=== PATIENT | male | born 1980 | race Caucasian/White ===

== ENCOUNTER 2020-06-30 20:07 | Emergency (ER) | payer BC, OTHER ==
[~2020-06-30] VITALS: Ht 147.3 cm; Wt 43.1 kg
[~2020-06-30 20:07] MED LIST: Z.0.CIPRO500 MG; Z.0.FLAGYL500 MG
[2020-06-30 20:54] LABS: BILIRUBIN,URINE SMALL (NEGATIVE); CLARITY,URINE HAZY (CLEAR); COLOR,URINE YELLOW (YELLOW); KETONES,URINE NEGATIVE (NEGATIVE); LEUKOCYTE ESTERASE ,URINE NEGATIVE (NEGATIVE); NITRITE,URINE NEGATIVE (NEGATIVE); PROTEIN,URINE DIPSTICK 1+ (NEGATIVE); URINE UROBILINOGEN 2 mg/dL (0.2 - 1)
[2020-06-30 21:09] LABS: BACTERIA,URINE FEW /HPF; EPITHELIAL CELLS,URINE FEW /LPF; WBC,URINE (MAN) 0-5 /HPF (0-5)
[2020-06-30 22:05] LABS: BASOPHILS % 0.3 % (0.0-1.0); EOSINOPHILS # (AUTO) 0.1 (0.0-0.4); EOSINOPHILS % 0.4 % (0.0-6.0); HEMATOCRIT 45.7 % (38.2-49.6); LYMPHOCYTES % 8.3 % (18.0-39.1); MEAN CORPUSCULAR HGB CONC 32.8 g/dL (31-35); MEAN CORPUSCULAR VOLUME 82.3 fL (81-99); MONOCYTES # (AUTO) 1.1 (0.2-0.8); MONOCYTES % 9.1 % (4.4-11.3); NEUTROPHILS # (AUTO) 9.4 (2.1-6.9); NEUTROPHILS % 81.3 % (38.7-80.0); PLATELET COUNT 233 x10e3/uL (140-360); RED BLOOD COUNT 5.55 x10e6/uL (4.3-5.7); RED CELL DISTRIBUTION WIDTH 14.8 % (11.7-14.4)
--- NOTE | 2020-06-30 22:13 | Emergency Department Note ---
History of Present Illnes History of Present Illness Chief Complaint: Abdominal Complaints History of Present Illness This is a 39 year old male WITH LLQ PAIN, NAUSEA AND DIARRHEA, STATES HAS H/O DIVERTICULITIS, SYMPTOMS STARTED THIS MORNING . Historian: Patient Arrival Mode: Car Onset (how long ago): hour(s) (12) Location: LLQ ABD Quality: PAIN, NAUSEA AND DIARRHEA Severity: moderate Onset quality: gradual Duration (how long): hour(s) (12) Timing of current episode: constant Progression: waxing and waning Chronicity: recurrent Context: Denies recent illness, Denies recent surgery Relieving factors: none Exacerbating factors: none Associated symptoms: Reports denies other symptoms Treatments prior to arrival: none Past Medical/Family History Physician Review I have reviewed the patient's past medical and family history. Any updates have been documented here. Past Medical History Recent Fever: No Clinical Suspicion of Infectio: No New/Unexplained Change in Ment: No Past Medical History: Anxiety, Depression, GERD Other Medical History: colitis, ptsd Past Surgical History: None Other Surgery: HEART SURGERY CHILD TESTICAL SX BACK-SCOLIOSIS SURGERY T&A EAR R LEG L KNEE Social History Smoking Cessation: Never Smoker Alcohol Use: Occasional Any Illegal Drug Use: No Family History Family history of heart diseas: No Review of Systems Review of Systems Constitutional: Reports no symptoms EENTM: Reports no symptoms Cardiovascular: Reports no symptoms Respiratory: Reports no symptoms Gastrointestinal: Reports as per HPI Genitourinary: Reports no symptoms Musculoskeletal: Reports no symptoms Integumentary: Reports no symptoms Neurological: Reports no symptoms Psychological: Reports no symptoms Endocrine: Reports no symptoms Hematological/Lymphatic: Reports no symptoms Physical Exam Related Data Allergies: Coded Allergies: Penicillins (Verified Allergy, Mild, 04/10/11) Ciprofloxacin (Verified Adverse Reaction, Severe, RASH, 04/24/11) Metronidazole (Verified Adverse Reaction, Severe, RASH, 04/24/11) Triage Vital Signs Vital Signs Date Time Temp Pulse Resp B/P (MAP) Pulse Ox O2 Delivery O2 Flow Rate FiO2 06/30/20 20:21 98.2 85 20 122/70 99 Room Air Physical Exam CONSTITUTIONAL Constitutional: Present well-developed, Present well-nourished; Absent distressed HENT HENT: Present normocephalic, Present atraumatic, Present oropharynx clear/moist, Present nose normal HENT L/R: Present left ext ear normal, Present right ext ear normal EYES Eyes: Reports PERRL, Reports conjunctivae normal NECK Neck: Present ROM normal PULMONARY Pulmonary: Present effort normal, Present breath sounds normal CARDIOVASCULAR Cardiovascular: Present regular rhythm, Present heart sounds normal, Present capillary refill normal, Present normal rate GASTROINTESTINAL Abdominal: Present soft, Present bowel sounds normal, Present tender (MILD LLQ) GENITOURINARY Genitourinary: Present exam deferred SKIN Skin: Present warm, Present dry MUSCULOSKELETAL Musculoskeletal: Present ROM normal NEUROLOGICAL Neurological: Present alert, Present oriented x 3, Present no gross motor or sensory deficits PSYCHOLOGICAL Psychological: Present mood/affect normal, Present judgement normal Results Laboratory Laboratory Laboratory Tests Test 06/30/20 21:57 06/30/20 20:40 White Blood Count 11.54 x10e3/uL (4.8-10.8) Red Blood Count 5.55 x10e6/uL (4.3-5.7) Hemoglobin 15.0 g/dL (14.0-18.0) Hematocrit 45.7 % (38.2-49.6) Mean Corpuscular Volume 82.3 fL (81-99) Mean Corpuscular Hemoglobin 27.0 pg (28-32) Mean Corpuscular Hemoglobin Concent 32.8 g/dL (31-35) Red Cell Distribution Width 14.8 % (11.7-14.4) Platelet Count 233 x10e3/uL (140-360) Neutrophils (%) (Auto) 81.3 % (38.7-80.0) Lymphocytes (%) (Auto) 8.3 % (18.0-39.1) Monocytes (%) (Auto) 9.1 % (4.4-11.3) Eosinophils (%) (Auto) 0.4 % (0.0-6.0) Basophils (%) (Auto) 0.3 % (0.0-1.0) Neutrophils # (Auto) 9.4 (2.1-6.9) Lymphocytes # (Auto) 1.0 (1.0-3.2) Monocytes # (Auto) 1.1 (0.2-0.8) Eosinophils # (Auto) 0.1 (0.0-0.4) Basophils # (Auto) 0.0 (0.0-0.1) Absolute Immature Granulocyte (auto 0.07 x10e3/uL (0-0.1) Sodium Level 139 mmol/L (136-145) Potassium Level 3.6 mmol/L (3.5-5.1) Chloride Level 103 mmol/L (98-107) Carbon Dioxide Level 24 mmol/L (22-29) Anion Gap 15.6 mmol/L (8-16) Blood Urea Nitrogen 15 mg/dL (7-26) Creatinine 0.75 mg/dL (0.72-1.25) Estimat Glomerular Filtration Rate > 60 ML/MIN (60-) BUN/Creatinine Ratio 20 (6-25) Glucose Level 116 mg/dL (74-118) Calcium Level 9.2 mg/dL (8.4-10.2) Total Bilirubin 2.0 mg/dL (0.2-1.2) Aspartate Amino Transf (AST/SGOT) 13 IU/L (5-34) Alanine Aminotransferase (ALT/SGPT) 12 IU/L (0-55) Alkaline Phosphatase 86 IU/L (40-150) Total Protein 6.8 g/dL (6.5-8.1) Albumin 4.0 g/dL (3.5-5.0) Globulin 2.8 g/dL (2.3-3.5) Albumin/Globulin Ratio 1.4 (0.8-2.0) Amylase Level 35 U/L (25-125) Lipase 10 U/L (8-78) Urine Color Yellow (YELLOW) Urine Clarity Hazy (CLEAR) Urine pH 5.5 (5 - 7) Urine Specific [place] >=1.030 (1.010-1.025) Urine Protein 1+ (NEGATIVE) Urine Glucose (UA) 1+ (NEGATIVE) Urine Ketones Negative (NEGATIVE) Urine Blood Negative (NEGATIVE) Urine Nitrite Negative (NEGATIVE) Urine Bilirubin Small (NEGATIVE) Urine Urobilinogen 2 mg/dL (0.2 - 1) Urine Leukocyte Esterase Negative (NEGATIVE) Urine RBC None /HPF (0-5) Urine WBC 0-5 /HPF (0-5) Urine Epithelial Cells Few /LPF (NONE) Urine Bacteria Few /HPF (NONE) Laboratory Tests Test 06/30/20 21:57 06/30/20 20:40 Urine Color Yellow (YELLOW) Urine Clarity Hazy (CLEAR) Urine pH 5.5 (5 - 7) Urine Specific [place] >=1.030 (1.010-1.025) Urine Protein 1+ (NEGATIVE) Urine Glucose (UA) 1+ (NEGATIVE) Urine Ketones Negative (NEGATIVE) Urine Blood Negative (NEGATIVE) Urine Nitrite Negative (NEGATIVE) Urine Bilirubin Small (NEGATIVE) Urine Urobilinogen 2 mg/dL (0.2 - 1) Urine Leukocyte Esterase Negative (NEGATIVE) Urine RBC None /HPF (0-5) Urine WBC 0-5 /HPF (0-5) Urine Epithelial Cells Few /LPF (NONE) Urine Bacteria Few /HPF (NONE) Lab results reviewed: Yes Imaging Imaging results reviewed: Yes Impressions EXAM: CT Abdomen and Pelvis WITH contrast INDICATION: ^ABD PAIN ^[id number] ^[id number] ^Y COMPARISON: CT dated 04/02/2011 TECHNIQUE: Abdomen and pelvis were scanned utilizing a multidetector helical scanner from the lung base to the pubic symphysis after administration of IV contrast. Coronal and sagittal reformations were obtained. Dose modulation, iterative reconstruction, and/or weight based adjustment of the mA/kV was utilized to reduce the radiation dose to as low as reasonably achievable. Routine protocol was performed. Scan was performed when during portal venous phase. IV CONTRAST: 100 mL of Isovue-370 ORAL CONTRAST: Water COMPLICATIONS: None RADIATION DOSE: Total DLP: 139.72 mGy*cm Estimated effective dose: (DLP x 0.015 x size factor) mSv CTDIvol has been reviewed. It is below the limits set by the Radiation Protocol Committee (RPC). FINDINGS: LINES and TUBES: None. LOWER THORAX: Unremarkable HEPATOBILIARY: No focal hepatic lesions. Unchanged mild biliary dilatation. GALLBLADDER: No radio-opaque stones or sludge. No wall thickening. SPLEEN: Splenomegaly, measuring 19.3 cm. Tiny nonspecific hypodensity. PANCREAS: No focal masses or ductal dilatation. ADRENALS: No adrenal nodules KIDNEYS/URETERS: Kidneys enhance symmetrically. No hydronephrosis. No cystic or solid mass lesions. No stones. Mass effect on both kidneys, left greater than right. Duplicated left renal collecting system. GI TRACT: Markedly distended stomach with air, water, and ingested material. Some bowel loops are distended, demonstrating wall thickening and mucosal hyperenhancement. Appendix is not visualized. PELVIC ORGANS/BLADDER: Bladder is not distended, demonstrating wall thickening and mild perivesical fat stranding. Prostate is prominent. LYMPH NODES: No lymphadenopathy. VESSELS: Unremarkable. PERITONEUM / RETROPERITONEUM: No free air or fluid. BONES: Scoliosis of the spine with bilateral Garrett tobi fixating devices in place. Skeletal changes including left iliac lucency and thinning adjacent to the sacroiliac joint, are unchanged. SOFT TISSUES: Unremarkable. IMPRESSION: 1. Markedly distended stomach, concerning for gastric outlet obstruction. 2. Small and large bowel areas of wall thickening and mucosal hyperenhancement, representing enterocolitis. 3. Again seen significant splenomegaly and mild biliary dilatation. 4. Bladder wall thickening and mild perivesical fat stranding. Recommend correlation with urinalysis for cystitis. Signed by: Dr. Dayron Davis MD on 06/30/2020 11:57 PM Dictated By: DAYRON DAVIS MD 56 Transcribed By: ÁNGEL on 06/30/202356 COPY TO: HUANG GARRETT MD~ Assessment & Plan Medical Decision Making MDM PT WITH LLQ PAIN NAUSEA AND DIARRHEA CBC, CMP, AMYLASE, LIPASE, UA, CT ABD/PELVIS ORDERED TO EVAL FOR LEUKOCYTOSIS, ELECTROLYTE ABNORMALITY, UTI, PANCREATITIS, COLITIS, DIVERTICULITIS, BOWEL PERFORATION omnicef due to allergies to pcn, cipro and flagyl Assessment & Plan Final Impression: (1) Enterocolitis Depart Disposition: HOME, SELF-CARE Last Vital Signs Date Time Temp Pulse Resp B/P (MAP) Pulse Ox O2 Delivery O2 Flow Rate FiO2 06/30/20 21:45 73 18 129/70 99 Room Air 06/30/20 20:21 98.2 HUANG GARRETT MD Jun 30, 2020 22:13
[2020-06-30 22:17] LABS: ALANINE AMINOTRANSFERASE 12 IU/L (0-55); ALBUMIN/GLOBULIN RATIO 1.4 (0.8-2.0); ALKALINE PHOSPHATASE 86 IU/L (40-150); ANION GAP 15.6 mmol/L (8-16); BLOOD UREA NITROGEN 15 mg/dL (7-26); BUN/CREATININE RATIO 20 (6-25); CALCIUM 9.2 mg/dL (8.4-10.2); CARBON DIOXIDE 24 mmol/L (22-29); CHLORIDE 103 mmol/L (98-107); CREATININE, SERUM 0.75 mg/dL (0.72-1.25); EST GLOMERULAR FILTRATION RATE > 60 ML/MIN (60-); GLUCOSE 116 mg/dL (74-118); POTASSIUM 3.6 mmol/L (3.5-5.1); SODIUM 139 mmol/L (136-145)
[2020-06-30 22:18] LABS: AMYLASE 35 U/L (25-125); LIPASE 10 U/L (8-78)
[2020-06-30] MEDS ORDERED: IOPAMIDOL 370 MG/ML 200 ML INFUS..BTL INJ ONE (22:34)
[2020-06-30] MEDS ORDERED: SODIUM CHLORIDE 0.9% 50ML 50 ML ONE (22:34)
--- NOTE | 2020-07-01 00:01 | Diagnostic Imaging Report ---
EXAM: CT Abdomen and Pelvis WITH contrast INDICATION: ^ABD PAIN ^[id number] ^[id number] ^Y COMPARISON: CT dated 04/02/2011 TECHNIQUE: Abdomen and pelvis were scanned utilizing a multidetector helical scanner from the lung base to the pubic symphysis after administration of IV contrast. Coronal and sagittal reformations were obtained. Dose modulation, iterative reconstruction, and/or weight based adjustment of the mA/kV was utilized to reduce the radiation dose to as low as reasonably achievable. Routine protocol was performed. Scan was performed when during portal venous phase. IV CONTRAST: 100 mL of Isovue-370 ORAL CONTRAST: Water COMPLICATIONS: None RADIATION DOSE: Total DLP: 139.72 mGy*cm Estimated effective dose: (DLP x 0.015 x size factor) mSv CTDIvol has been reviewed. It is below the limits set by the Radiation Protocol Committee (RPC). FINDINGS: LINES and TUBES: None. LOWER THORAX: Unremarkable HEPATOBILIARY: No focal hepatic lesions. Unchanged mild biliary dilatation. GALLBLADDER: No radio-opaque stones or sludge. No wall thickening. SPLEEN: Splenomegaly, measuring 19.3 cm. Tiny nonspecific hypodensity. PANCREAS: No focal masses or ductal dilatation. ADRENALS: No adrenal nodules KIDNEYS/URETERS: Kidneys enhance symmetrically. No hydronephrosis. No cystic or solid mass lesions. No stones. Mass effect on both kidneys, left greater than right. Duplicated left renal collecting system. GI TRACT: Markedly distended stomach with air, water, and ingested material. Some bowel loops are distended, demonstrating wall thickening and mucosal hyperenhancement. Appendix is not visualized. PELVIC ORGANS/BLADDER: Bladder is not distended, demonstrating wall thickening and mild perivesical fat stranding. Prostate is prominent. LYMPH NODES: No lymphadenopathy. VESSELS: Unremarkable. PERITONEUM / RETROPERITONEUM: No free air or fluid. BONES: Scoliosis of the spine with bilateral Bledsoe tobi fixating devices in place. Skeletal changes including left iliac lucency and thinning adjacent to the sacroiliac joint, are unchanged. SOFT TISSUES: Unremarkable. IMPRESSION: 1. Markedly distended stomach, concerning for gastric outlet obstruction. 2. Small and large bowel areas of wall thickening and mucosal hyperenhancement, representing enterocolitis. 3. Again seen significant splenomegaly and mild biliary dilatation. 4. Bladder wall thickening and mild perivesical fat stranding. Recommend correlation with urinalysis for cystitis. Signed by: Dr. Dayron Davis MD on 06/30/2020 11:57 PM
[2020-07-01 00:16] VITALS: BP 126/70
== END 2020-07-01 00:28 | disposition home or self-care (01) ==
LOC: ER 20:51
DX: K52.9 Noninfective gastroenteritis and colitis, unspecified (principal); R10.32 Left lower quadrant pain; R11.0 Nausea; K21.9 Gastro-esophageal reflux disease without esophagitis; F41.9 Anxiety disorder, unspecified
CPT/HCPCS: 36415; 74177; 80053; 81001; 82150; 83690; 85025; 99284; Q9967

== ENCOUNTER 2020-07-01 09:38 | Emergency (ER) | payer BC ==
[~2020-07-01] VITALS: Ht 147.3 cm; Wt 43.1 kg
[2020-07-01] MEDS ORDERED: METHYLPREDNISOLONE SOD SUCC 125 MG/2ML VIAL IV STA (09:42)
[2020-07-01] MEDS ORDERED: FAMOTIDINE 20 MG/2 ML VIAL IV STA (09:42)
[2020-07-01] MEDS ORDERED: DIPHENHYDRAMINE HCL INJ 50 MG/ML VIAL IV ONE ×2 (09:45→11:00)
[2020-07-01] MEDS ORDERED: SODIUM CHLORIDE 0.9% 500ML 500 ML IV ONE (09:45)
--- OUTSIDE RECORDS SUMMARY | 2020-07-01 09:50 | XMS REPORT | Continuity of Care Document ---
Author Author [facility] Organization [facility] Address [address] [place] [address] Phone Unavailable Care Team Providers Care Quantitative Software Engineer Name Role Phone Rosy GARRETT Unavailable Payers Payer Name Policy Type Policy Number Effective Date Expiration Date S ource Problems This patient has no known problems. Allergies, Adverse Reactions, Alerts Allergy Name Allergy Type Status Severity Reaction(s) Onset Date Inacti ve Date Treating Clinician Comments Source aztreonam DA Active 2018-04-03 00:00:00 [facility] sulfamethoxazole DA Active 2018-04-03 00:00:00 [facility] metronidazole DA Active 2018-04-03 00:00:00 [facility] vancomycin HCl DA Active OR 2017-03-28 00:00:00 [facility] Penicillins DA Active U 2017-03-28 00:00:00 [facility] levofloxacin DA Active OR 2017-03-28 00:00:00 [facility] Medications This patient has no known medications. Procedures This patient has no known procedures. Results Test Description Test Time Test Comments Results Result Comments Source CT ABDOMEN/PELVIS W 2020-06-30 23:45:00 [facility] [address] [place], [place] [address] Patient Name: ALFIE ARMENTA MR #: [id number] : 1980 Age/Sex: 39/M Req #: [id number] Adm Physician: Ordered by: HUANG GARRETT MD Report #: [id number] Location: ER Room/Bed: Procedure: [id number] CT/CT ABDOMEN/PELVIS W Exam Date: 06/30/20 Exam Time: 2254 REPORT STATUS: Signed EXAM: CT Abdomen and Pelvis WITH contrast INDICATION: ABD PAIN [id number] Y COMPARISON: CT dated 04/02/2011 TECHNIQUE: Abdomen and pelvis were scanned utilizing a multidetector helical scanner from the lung base to the pubic symp hysis after administration of IV contrast. Coronal and sagittal reformations were obtained. Dose modulation, iterative reconstruction, and/or weight based adjustment of the mA/kV was utilized to reduce the radiation dose to as low as reasonably achievable. Routine protocol was performed. Scan was performed when during portal venous phase. IV CONTRAST: 100 mL of Isovue-370 ORAL CONTRAST: Water COMPLICATIONS: None RADIATION DOSE: Total DLP: 139.72 mGy*cm Estimated effective dose: (DLP x 0.015 x size factor) mSv CTDIvol has been reviewed. It is below the limits set by the Radiation Protocol Committee (RPC). FINDINGS: LINES and TUBES: None. LOWER THORAX: Unremarkable HEPATOBILIARY: No focal hepatic lesions. Unchanged mild biliary dilatation. GALLBLADDER: No radio-opaque stones or sludge. No wall thickening. SPLEEN: Splenomegaly, measuring 19.3 cm. Tiny nonspecific hypodensity. PANCREAS: No focal masses or ductal dilatation. ADRENALS: No adrenal nodules KIDNEYS/URETERS: Kidneys enhance symmetrically. No hydronephrosis. No cystic or solid mass lesions. No stones. Mass effect on both kidneys, left greater than right. Duplicated left renal collecting system. GI TRACT: Markedly distended stomach with air, water, and ingested material. Some bowel loops are di stended, demonstrating wall thickening and mucosal hyperenhancement. Appendix is not visualized. PELVIC ORGANS/BLADDER: Bladder is not distended, demonstrating wall thickening and mild perivesical fat stranding. Prostate is prominent. LYMPH NODES: No lymphadenopathy. VESSELS: Unremarkable. PERITONEUM / RETROPERITONEUM: No free air or fluid. BONES: Scoliosis of the spine with bilateral Garrett tobi fixating devices in place. Skeletal changes including left iliac lucency and thinning adjacent to the sacroiliac joint, are unchanged. SOFT TISSUES: Unremarkable. IMPRESSION: 1. Markedly distended stomach, concerning for gastric outlet obstruction. 2. Small and large bowel areas of wall thickening and mucosal hyperenhancement, representing enterocolitis. 3. Again seen significant splenomegaly and mild biliary dilatation. 4. Bladder wall thickening and mild perivesical fat stranding. Recommend correlation with urinalysis for cystitis. Signed by: Dr. Dayron Marquez MD on 06/30/2020 11:57 PM Dictated By: DAYRON MARQUEZ MD 56 Transcribed By: ÁNGEL on 06/30/202356 COPY TO: HUANG GARRETT MD URINALYSIS COMPLETE 2019-01-21 16:26:00 Test Item UA COLOR (test code = COLU) DARK YELLOW YELLOW A UA APPEARANCE (test code = APPU) CLEAR CLEAR UA GLUCOSE DIPSTICK (test code = DGLUU) NEGATIVE mg/dL NEGATIVE UA BILIRUBIN DIPSTICK (test code = BILU) NEGATIVE mg/dL NEGATIVE UA KETONE DIPSTICK (test code = KETU) Negative mg/dL NEGATIVE UA SPECIFIC GRAVITY (test code = SGU) 1.026 1.001-1.035 UA BLOOD DIPSTICK (test code = LEEANNE) Negative NEGATIVE UA PH DIPSTICK (test code = NKIOLAS) 5.0 5.0-8.0 UA PROTEIN DIPSTICK (test code = PROU) Negative mg/dL NEGATIVE UA UROBILINIOGEN DIPSTICK (test code = URO) 1.0-2.0 (1+) mg/dL NEG ATIVE UA NITRITE DIPSTICK (test code = SARA) NEGATIVE NEGATIVE UA LEUKOCYTE ESTERASE W REFLEX (test code = LEUUR) NEGATIVE NEG ATIVE UA WBC (test code = WBCU) 0-5 #/HPF 0-5 UA RBC (test code = RBCU) 0-2 #/HPF 0-5 UA EPITHELIAL CELLS (test code = EPIU) FEW per HPF FEW UA MUCUS (test code = MUCU) FEW #/LPF FEW Urine Source? Clean CatchDRUGS OF ABUSE SCREEN [id number] 16:26:00* Test Item Value Reference Range Interpretation Comments URN COCAINE (test code = COCAURN) NEGATIVE <300 ng/mL URN CANNABINOIDS (test code = CANNABURN) NEGATIVE <50 ng/mL URN AMPHETAMINE (test code = AMPHETURN) NEGATIVE <1000 ng/mL URN BARBITURATE (test code = BARBITURN) NEGATIVE <200 ng/mL URN BENZODIAZEPINE (test code = BENZOURN) NEGATIVE <200 ng/mL URN OPIATES (test code = OPIATURN) NEGATIVE <300 ng/mL URN PHENCYCLIDINE (PCP) (test code = PHENCURN) NEGATIVE <25 ng/ mL URN METHADONE (test code = METHAURN) NEGATIVE <300 ng/mL Urine Source? Clean CatchBASIC METABOLIC [id number] 16:20:00* Test Item Value Reference Range Interpretation Comments SODIUM (test code = NA) 141 mmol/L 136-145 N POTASSIUM (test code = K) 3.8 mmol/L 3.5-5.1 N CHLORIDE (test code = CL) 108.0 mmol/L 98-107 H CARBON DIOXIDE (test code = CO2) 24.0 mmol/L 21-32 N ANION GAP (test code = GAP) 12.8 10-20 N GLUCOSE (test code = GLU) 86 mg/dL 74-106 N BLOOD UREA NITROGEN (test code = BUN) 22 mg/dL 7-18 H GLOMERULAR FILTRATION RATE (test code = GFR) > 60 mL/min >=60 Estimated GFR by using Modified MDRD formula.Chronic kidney disease is defined as either kidney damageor GFR <60 mL/min/1.73 m2 for >3 months. CREATININE (test code = CREAT) 0.40 mg/dL 0.7-1.3 L BUN/CREATININE RATIO (test code = BUN/CREA) 55.0 10-20 H CALCIUM (test code = CA) 8.7 mg/dL 8.5-10.1 N HEPATIC FUNCTION [id number] 16:20:00* Test Item Value Reference Range Interpretation Comments TOTAL PROTEIN (test code = PROT) 6.8 gram/dL 6.4-8.2 N ALBUMIN (test code = ALB) 3.8 g/dL 3.4-5.0 N GLOBULIN (test code = GLOB) 3.0 gram/dL 2.7-4.2 N ALBUMIN/GLOBULIN RATIO (test code = A/G) 1.3 0.75-1.50 N BILIRUBIN TOTAL (test code = BILT) 0.80 mg/dL 0.0-1.0 N BILIRUBIN DIRECT (test code = BILD) 0.24 mg/dL 0.0-0.20 H SGOT/AST (test code = AST) 20 IUnit/L 15-37 N SGPT/ALT (test code = ALT) 24 IUnit/L 12-78 N ALKALINE PHOSPHATASE TOTAL (test code = ALKP) 75 IUnit/L 45-117 N Note change in reference range due to change in reagent. [id number] 16:20:00* Test Item Value Reference Range Interpretation Comments LIPASE (test code = LIP) 102 U/L 73.0-393.0 N [id number] 16:20:00* Test Item Value Reference Range Interpretation Comments ACETAMINOPHEN (test code = ACET) < 10 mcg/mL 10-30 L A RANGE OF 10-30 mcg/mL IS A THERAPEUTIC RANGE. TOXIC CONCENTRATIONS: >150 mcg/mL AT 4 HOURS AFTER INGESTION >= 50 mcg/mL AT 12 HOURS AFTER INGESTION [id number] 16:20:00* Test Item Value Reference Range Interpretation Comments SALICYLATE (test code = KIKO) < 1.7 mg/dL 2.8-20.0 L [id number] 16:20:00* Test Item Value Reference Range Interpretation Comments ALCOHOL (test code = ALC) < 3 mg/dL 0.0-3.0 N -- INTERPRETIVE DATA NOTE: POSITIVE SCREENING RESULTS SHOULD BE CONSIDERED PRESUMPTIVE.WHEN COLLECTED FOR MEDICAL PURPOSES ONLY. SPECIMEN WILL NOTBE COLLECTED BY CHAIN OF CUSTODY.IF A CONFIRMATION OF POSITIVE RESULTS IS DESIRED, ACONFIRMATION TEST MUST BE REQUESTED BY THE PHYSICIAN AT ANADDITIONAL CHARGE TO THE PATIENT. BASIC METABOLIC [id number] 16:12:00* Test Item Value Reference Range Interpretation Comments SODIUM (test code = NA) 141 mmol/L 136-145 N POTASSIUM (test code = K) 3.8 mmol/L 3.5-5.1 N CHLORIDE (test code = CL) 108.0 mmol/L 98-107 H CARBON DIOXIDE (test code = CO2) mmol/L 21-32 ANION GAP (test code = GAP) 10-20 GLUCOSE (test code = GLU) mg/dL 74-106 BLOOD UREA NITROGEN (test code = BUN) mg/dL 7-18 GLOMERULAR FILTRATION RATE (test code = GFR) mL/min >=60 CREATININE (test code = CREAT) mg/dL 0.7-1.3 BUN/CREATININE RATIO (test code = BUN/CREA) 10-20 CALCIUM (test code = CA) mg/dL 8.5-10.1 HEPATIC FUNCTION [id number] 16:12:00* Test Item Value Reference Range Interpretation Comments TOTAL PROTEIN (test code = PROT) gram/dL 6.4-8.2 ALBUMIN (test code = ALB) g/dL 3.4-5.0 GLOBULIN (test code = GLOB) gram/dL 2.7-4.2 ALBUMIN/GLOBULIN RATIO (test code = A/G) 0.75-1.50 BILIRUBIN TOTAL (test code = BILT) mg/dL 0.0-1.0 BILIRUBIN DIRECT (test code = BILD) mg/dL 0.0-0.20 SGOT/AST (test code = AST) IUnit/L 15-37 SGPT/ALT (test code = ALT) IUnit/L 12-78 ALKALINE PHOSPHATASE TOTAL (test code = ALKP) IUnit/L 45-117 [id number] 16:12:00* Test Item Value Reference Range Interpretation Comments LIPASE (test code = LIP) U/L 73.0-393.0 [id number] 16:12:00* Test Item Value Reference Range Interpretation Comments ACETAMINOPHEN (test code = ACET) mcg/mL 10-30 [id number] 16:12:00* Test Item Value Reference Range Interpretation Comments SALICYLATE (test code = KIKO) mg/dL 2.8-20.0 [id number] 16:12:00* Test Item Value Reference Range Interpretation Comments ALCOHOL (test code = ALC) mg/dL 0-3 CBC W/O [id number] 16:09:00* Test Item Value Reference Range Interpretation Comments WHITE BLOOD CELL (test code = WBC) 9.0 K/mm3 4.5-12.5 N RED BLOOD CELL (test code = RBC) 4.70 mill/mm3 4.0-5.8 N HEMOGLOBIN (test code = HGB) 13.1 gram/dL 13.0-17.5 N HEMATOCRIT (test code = HCT) 39.1 % 42.0-52.0 L MEAN CELL VOLUME (test code = MCV) 83.2 fL 80-98 N MEAN CELL HGB (test code = MCH) 27.9 picogram 27.0-33.0 N MEAN CELL HGB CONCETRATION (test code = MCHC) 33.5 gram/dL 33.0-36. 0 N RED CELL DISTRIBUTION WIDTH (test code = RDW) 15.1 % 11.6-16. 2 N PLATELET COUNT (test code = PLT) 187 K/mm3 150-450 N MEAN PLATELET VOLUME (test code = MPV) 10.4 fL 6.7-11.0 N URINALYSIS [id number] 16:09:00* Test Item Value Reference Range Interpretation Comments UA COLOR (test code = COLU) DARK YELLOW YELLOW A UA APPEARANCE (test code = APPU) CLEAR CLEAR UA GLUCOSE DIPSTICK (test code = DGLUU) NEGATIVE mg/dL NEGATIVE UA BILIRUBIN DIPSTICK (test code = BILU) NEGATIVE mg/dL NEGATIVE UA KETONE DIPSTICK (test code = KETU) Negative mg/dL NEGATIVE UA SPECIFIC GRAVITY (test code = SGU) 1.026 1.001-1.035 UA BLOOD DIPSTICK (test code = LEEANNE) Negative NEGATIVE UA PH DIPSTICK (test code = NIKOLAS) 5.0 5.0-8.0 UA PROTEIN DIPSTICK (test code = PROU) Negative mg/dL NEGATIVE UA UROBILINIOGEN DIPSTICK (test code = URO) 1.0-2.0 (1+) mg/dL NEG ATIVE UA NITRITE DIPSTICK (test code = SARA) NEGATIVE NEGATIVE UA LEUKOCYTE ESTERASE W REFLEX (test code = LEUUR) NEGATIVE NEG ATIVE UA WBC (test code = WBCU) 0-5 #/HPF 0-5 UA RBC (test code = RBCU) 0-2 #/HPF 0-5 UA EPITHELIAL CELLS (test code = EPIU) FEW per HPF FEW UA MUCUS (test code = MUCU) FEW #/LPF FEW Urine Source? Clean CatchDRUGS OF ABUSE SCREEN [id number] 16:09:00* Test Item Value Reference Range Interpretation Comments URN COCAINE (test code = COCAURN) <300 ng/mL URN CANNABINOIDS (test code = CANNABURN) <50 ng/mL URN AMPHETAMINE (test code = AMPHETURN) <1000 ng/mL URN BARBITURATE (test code = BARBITURN) <200 ng/mL URN BENZODIAZEPINE (test code = BENZOURN) <200 ng/mL URN OPIATES (test code = OPIATURN) <300 ng/mL URN PHENCYCLIDINE (PCP) (test code = PHENCURN) <25 ng/ mL URN METHADONE (test code = METHAURN) <300 ng/mL Urine Source? Clean CatchCBC W/O [id number] 16:02:00* Test Item Value Reference Range Interpretation Comments WHITE BLOOD CELL (test code = WBC) K/mm3 4.5-12.5 RED BLOOD CELL (test code = RBC) mill/mm3 4.0-5.8 HEMOGLOBIN (test code = HGB) 13.1 gram/dL 13.0-17.5 N HEMATOCRIT (test code = HCT) % 42.0-52.0 MEAN CELL VOLUME (test code = MCV) fL 80-98 MEAN CELL HGB (test code = MCH) picogram 27.0-33.0 MEAN CELL HGB CONCETRATION (test code = MCHC) gram/dL 33.0-36. 0 RED CELL DISTRIBUTION WIDTH (test code = RDW) % 11.6-16. 2 PLATELET COUNT (test code = PLT) K/mm3 150-450 MEAN PLATELET VOLUME (test code = MPV) fL 6.7-11.0
[2020-07-01] MEDS ORDERED: DEXAMETHASONE SOD PHOS INJ 4 MG/ML VIAL ONE ×2 (10:49→10:50)
[2020-07-01] MEDS ORDERED: DIPHENHYDRAMINE HCL INJ 50 MG/ML VIAL ONE (10:49)
[2020-07-01] MEDS ORDERED: DEXAMETHASONE SOD PHOS 10 MG/1 ML VIAL IV ONE (11:00)
--- NOTE | 2020-07-01 12:22 | Emergency Department Note ---
History of Present Illnes History of Present Illness Chief Complaint: General Medicine Complaints History of Present Illness This is a 39 year old male states he woke up around 0830 this morning with redness, rash, and itching to trunk of body states he was here last night dx with colitis and sent home with rx for omnicef states he is having allergic reaction to omnicef denies cp/sob. Pt also received contrast CT last night Historian: Patient Arrival Mode: Car Process Control Tech Required: No Onset (how long ago): hour(s) Location: trunk Quality: itchy, red rash Radiation: Reports non-radiation Severity: moderate Onset quality: sudden Timing of current episode: constant Progression: unchanged Chronicity: new Context: Reports recent illness Relieving factors: none Exacerbating factors: none Associated symptoms: Reports denies other symptoms Treatments prior to arrival: none Past Medical/Family History Physician Review I have reviewed the patient's past medical and family history. Any updates have been documented here. Past Medical History Recent Fever: No Clinical Suspicion of Infectio: No New/Unexplained Change in Ment: No Past Medical History: Anxiety, Depression, GERD Other Medical History: colitis, ptsd prajapati syndrome scoliosis Past Surgical History: None Other Surgery: HEART SURGERY CHILD TESTICAL SX BACK-SCOLIOSIS SURGERY T&A EAR R LEG L KNEE Social History Smoking Cessation: Former smoker Counseling Performed: No Alcohol Use: Social Any Illegal Drug Use: No TB Exposure/Symptoms: No Physically hurt or threatened: No Family History Family history of heart diseas: No Other Any Pre-Existing Lines (PICC,: No Review of Systems Review of Systems Constitutional: Reports no symptoms EENTM: Reports no symptoms Cardiovascular: Reports no symptoms Respiratory: Reports no symptoms Gastrointestinal: Reports no symptoms Genitourinary: Reports no symptoms Musculoskeletal: Reports no symptoms Integumentary: Reports as per HPI, Reports rash (erythematous on trunk) Neurological: Reports no symptoms Psychological: Reports no symptoms Endocrine: Reports no symptoms Hematological/Lymphatic: Reports no symptoms Physical Exam Related Data Allergies: Coded Allergies: Penicillins (Verified Allergy, Mild, 04/10/11) aztreonam (Verified Allergy, Unknown, 07/01/20) cefdinir (Verified Allergy, Unknown, 07/01/20) levofloxacin (Verified Allergy, Unknown, 07/01/20) sulfamethoxazole (Verified Allergy, Unknown, 07/01/20) vancomycin (Verified Allergy, Unknown, 07/01/20) ciprofloxacin (Verified Adverse Reaction, Severe, RASH, 04/24/11) metronidazole (Verified Adverse Reaction, Severe, RASH, 04/24/11) Triage Vital Signs Vital Signs Date Time Temp Pulse Resp B/P (MAP) Pulse Ox O2 Delivery O2 Flow Rate FiO2 07/01/20 09:42 97.6 95 18 106/73 98 Room Air Vital signs reviewed: Yes Physical Exam CONSTITUTIONAL Constitutional: Present well-developed, Present well-nourished HENT HENT: Present normocephalic, Present atraumatic, Present oropharynx clear/moist, Present nose normal HENT L/R: Present left ext ear normal, Present right ext ear normal EYES Eyes: Reports PERRL, Reports conjunctivae normal NECK Neck: Present ROM normal PULMONARY Pulmonary: Present effort normal, Present breath sounds normal CARDIOVASCULAR Cardiovascular: Present regular rhythm, Present heart sounds normal, Present capillary refill normal, Present normal rate GASTROINTESTINAL Abdominal: Present soft, Present nontender, Present bowel sounds normal GENITOURINARY Genitourinary: Present exam deferred SKIN Skin: Present warm, Present dry, Present erythema MUSCULOSKELETAL Musculoskeletal: Present ROM normal NEUROLOGICAL Neurological: Present alert, Present oriented x 3, Present no gross motor or sensory deficits PSYCHOLOGICAL Psychological: Present mood/affect normal, Present judgement normal Assessment & Plan Medical Decision Making MDM allergic rxn ? to omnicef vs iv contrast dye Reassessment Reassessment improved, dc home, dc omnicef, f/u pcp tomorow, prednisone 60 qd x 4 days, benadryl/pepcid as directed Assessment & Plan Final Impression: (1) Allergic reaction Depart Disposition: HOME, SELF-CARE Last Vital Signs Date Time Temp Pulse Resp B/P (MAP) Pulse Ox O2 Delivery O2 Flow Rate FiO2 07/01/20 09:42 97.6 95 18 106/73 98 Room Air Medications in the ED Sodium Chloride 500 ml @ 0 mls/hr Q0M ONCE IV Last administered on 07/01/20at 09:57; Admin Dose 999 MLS/HR; Start 07/01/20 at 09:45; Stop 07/01/20 at 09:46; Status DC Methylprednisolone Sodium Succinate 125 mg ONCE STAT IV Last administered on 07/01/20at 09:57; Admin Dose 125 MG; Start 07/01/20 at 09:42; Stop 8/17/20 at 0 9:44; Status DC Diphenhydramine HCl 25 mg NOW ONCE IV Last administered on 07/01/20at 09:57; Admin Dose 25 MG; Start 07/01/20 at 09:45; Stop 07/01/20 at 09:47; Status DC Famotidine 40 mg NOW STAT IV Last administered on 07/01/20at 09:57; Admin Dose 40 MG; Start 07/01/20 at 09:42; Stop 07/01/20 at 09:47; Status DC Diphenhydramine HCl 50 mg STK-MED ONCE .ROUTE ; Start 07/01/20 at 10:49; Stop 07/01/20 at 10:43; Status DC Dexamethasone Sodium Phosphate 4 mg STK-MED ONCE .ROUTE ; Start 07/01/20 at 10:49; Stop 07/01/20 at 10:43; Status DC Dexamethasone Sodium Phosphate 8 mg STK-MED ONCE .ROUTE ; Start 07/01/20 at 10:50; Stop 07/01/20 at 10:44; Status DC Dexamethasone Sodium Phosphate 10 mg ONCE ONCE IV Last administered on 07/01/20at 10:56; Admin Dose 10 MG; Start 07/01/20 at 11:00; Stop 07/01/20 at 11:01; Status DC Diphenhydramine HCl 25 mg NOW ONCE IV Last administered on 07/01/20at 10:56; Admin Dose 25 MG; Start 07/01/20 at 11:00; Stop 07/01/20 at 11:01; Status DC PERRY SANFORD MD Jul 01, 2020 12:22
== END 2020-07-01 12:26 | disposition home or self-care (01) ==
LOC: ER 09:46
DX: R21 Rash and other nonspecific skin eruption (principal); T36.1X5A Adverse effect of cephalosporins and other beta-lactam antibiotics, initial encounter; K21.9 Gastro-esophageal reflux disease without esophagitis; F41.9 Anxiety disorder, unspecified
CPT/HCPCS: 99283; J1100; J1200; J2930; J7040

== ENCOUNTER 2021-07-12 01:39 | Emergency (ER) | payer BC ==
[~2021-07-12] VITALS: Ht 147.3 cm; Wt 43.1 kg
[2021-07-12 02:13] LABS: BASOPHILS % 0.3 % (0.0-1.0); EOSINOPHILS % 0.3 % (0.0-6.0); HEMATOCRIT 44.5 % (38.2-49.6); HEMOGLOBIN 14.8 g/dL (14.0-18.0); LYMPHOCYTES # (AUTO) 0.8 (1.0-3.2); LYMPHOCYTES % 8.9 % (18.0-39.1); MEAN CORPUSCULAR HEMOGLOBIN 27.9 pg (28-32); MEAN CORPUSCULAR HGB CONC 33.3 g/dL (31-35); MEAN CORPUSCULAR VOLUME 83.8 fL (81-99); MONOCYTES # (AUTO) 0.9 (0.2-0.8); MONOCYTES % 10.5 % (4.4-11.3); NEUTROPHILS # (AUTO) 7.1 (2.1-6.9); NEUTROPHILS % 79.7 % (38.7-80.0); PLATELET COUNT 166 x10e3/uL (140-360); RED BLOOD COUNT 5.31 x10e6/uL (4.3-5.7); RED CELL DISTRIBUTION WIDTH 14.3 % (11.7-14.4)
[2021-07-12 02:33] LABS: ALBUMIN/GLOBULIN RATIO 1.5 (0.8-2.0); ANION GAP 13.3 mmol/L (8-16); CREATININE, SERUM 0.77 mg/dL (0.72-1.25); POTASSIUM 4.3 mmol/L (3.5-5.1)
[2021-07-12] MEDS ORDERED: SODIUM CHLORIDE 0.9% 50ML 50 ML ONE (02:58)
[2021-07-12] MEDS ORDERED: IOPAMIDOL 370 MG/ML 200 ML INFUS..BTL INJ ONE (02:58)
[2021-07-12 03:22] LABS: CLARITY,URINE CLEAR (CLEAR); COLOR,URINE YELLOW (YELLOW); KETONES,URINE TRACE (NEGATIVE); LEUKOCYTE ESTERASE ,URINE NEGATIVE (NEGATIVE); NITRITE,URINE NEGATIVE (NEGATIVE); PROTEIN,URINE DIPSTICK NEGATIVE (NEGATIVE); URINE UROBILINOGEN 0.2 mg/dL (0.2 - 1)
[2021-07-12 03:33] LABS: BACTERIA,URINE FEW /HPF; EPITHELIAL CELLS,URINE FEW /LPF; RBC,URINE 0-5 /HPF (0-5); WBC,URINE (MAN) 0-5 /HPF (0-5)
[2021-07-12] MEDS: DICYCLOMINE HCL 20 MG/2 ML VIAL IM ONE (04:14)
== END 2021-07-12 04:18 | disposition home or self-care (01) ==
LOC: ER 02:13
DX: K52.9 Noninfective gastroenteritis and colitis, unspecified (principal); B34.9 Viral infection, unspecified; R16.1 Splenomegaly, not elsewhere classified; F43.10 Post-traumatic stress disorder, unspecified; Z88.1 Allergy status to other antibiotic agents; Z88.0 Allergy status to penicillin
CPT/HCPCS: 36415; 74177; 80053; 81001; 85025; 99284; J0500; Q9967

== ENCOUNTER 2021-11-23 04:37 | Emergency (ER) | payer BC ==
[~2021-11-23] VITALS: Ht 147.3 cm; Wt 43.1 kg
[2021-11-23 05:03] LABS: BASOPHILS % 0.4 % (0.0-1.0); EOSINOPHILS # (AUTO) 0.1 (0.0-0.4); EOSINOPHILS % 0.5 % (0.0-6.0); HEMATOCRIT 46.1 % (38.2-49.6); HEMOGLOBIN 15.4 g/dL (14.0-18.0); LYMPHOCYTES # (AUTO) 0.7 (1.0-3.2); LYMPHOCYTES % 7.1 % (18.0-39.1); MEAN CORPUSCULAR HEMOGLOBIN 28.6 pg (28-32); MEAN CORPUSCULAR HGB CONC 33.4 g/dL (31-35); MEAN CORPUSCULAR VOLUME 85.5 fL (81-99); MONOCYTES % 10.8 % (4.4-11.3); NEUTROPHILS # (AUTO) 7.6 (2.1-6.9); NEUTROPHILS % 80.8 % (38.7-80.0); PLATELET COUNT 164 x10e3/uL (140-360); RED BLOOD COUNT 5.39 x10e6/uL (4.3-5.7); RED CELL DISTRIBUTION WIDTH 14.7 % (11.7-14.4)
[2021-11-23 05:25] LABS: ALBUMIN 4.3 g/dL (3.5-5.0); ALBUMIN/GLOBULIN RATIO 1.4 (0.8-2.0); ANION GAP 12.3 mmol/L (8-16); CALCIUM 9.5 mg/dL (8.4-10.2); CREATININE, SERUM 0.67 mg/dL (0.72-1.25); POTASSIUM 4.3 mmol/L (3.5-5.1)
[2021-11-23 05:35] LABS: AMYLASE 44 U/L (25-125); LIPASE 9 U/L (8-78)
[2021-11-23] MEDS ORDERED: SODIUM CHLORIDE 0.9% 50ML 50 ML ONE (05:46)
[2021-11-23] MEDS ORDERED: IOPAMIDOL 370 MG/ML 200 ML INFUS..BTL INJ ONE (05:46)
[2021-11-23 06:18] LABS: CLARITY,URINE SL CLOUDY (CLEAR); COLOR,URINE YELLOW (YELLOW)
[2021-11-23 06:19] LABS: KETONES,URINE TRACE (NEGATIVE); LEUKOCYTE ESTERASE ,URINE NEGATIVE (NEGATIVE); NITRITE,URINE NEGATIVE (NEGATIVE); PROTEIN,URINE DIPSTICK NEGATIVE (NEGATIVE); URINE UROBILINOGEN 0.2 mg/dL (0.2 - 1)
[2021-11-23 06:29] LABS: BACTERIA,URINE RARE /HPF; EPITHELIAL CELLS,URINE FEW /LPF; RBC,URINE 0-5 /HPF (0-5); WBC,URINE (MAN) 0-5 /HPF (0-5)
[2021-11-23] MEDS ORDERED: PEPCID20 MG PO (06:34)
[2021-11-23] MEDS ORDERED: DICYCLOMINE HCL10 MG PO (06:35)
== END 2021-11-23 07:21 | disposition home or self-care (01) ==
LOC: ER 04:45
DX: R10.33 Periumbilical pain (principal); K52.9 Noninfective gastroenteritis and colitis, unspecified; R11.2 Nausea with vomiting, unspecified; K21.9 Gastro-esophageal reflux disease without esophagitis; F43.10 Post-traumatic stress disorder, unspecified; F41.9 Anxiety disorder, unspecified; M41.9 Scoliosis, unspecified
CPT/HCPCS: 36415; 74177; 80053; 81001; 82150; 83690; 85025; 99284; Q9967